=== PATIENT | female | born 1955 | race American Indian/Alaskan Native ===

== ENCOUNTER 2017-11-14 11:46 | Emergency (ER) | payer MEDICARE ==
[2017-11-14] MEDS ORDERED: TORADOL IV ONE (16:28)
[2017-11-14] MEDS ORDERED: BENADRYL IV ONE (16:28)
[2017-11-14] MEDS ORDERED: NACL 0.9% 1000 ML 1,000 ML IV ONE (16:28)
--- NOTE | 2017-11-14 16:29 | Emergency Department Report ---
ED General Adult HPI - General Chief complaint: Upper Respiratory Infection Stated complaint: FLU LIKE SYMPTOMS Time Seen by Provider: 11/14/17 16:07 Source: patient, RN notes reviewed Mode of arrival: Ambulatory Limitations: No Limitations - History of Present Illness Initial comments: This is a 62-year-old female who was previously on known to this provider. Patient presents to the ER with sinus pressure in her frontal sinus, left sided maxillary sinus pressure, cough and congestion. She describes a headache that started yesterday, headache was not sudden or thunderclap in nature, it did not reach maximal intensity within an hour, and it is not the worse headache of her life. She reports chronic and frequent sinus and migraine headaches. She also complains of cough, right scapular pain, and chest wall pain with coughing. This has been going on intermittently for the past 18 days. Patient further reports that she was treated for the flu at the [facility] , this was on October 27, she reports her symptoms improved, and then worsened. There is no leg pain or leg swelling, no recent cocaine use, patient denies DVT and pulmonary embolus risk factors. -: Gradual Location: head, face, chest, back Quality: aching Consistency: constant Improves with: rest Worsens with: movement Associated Symptoms: chest pain, cough, headaches, weakness. denies: confusion , diaphoresis, fever/chills, loss of appetite, malaise, nausea/vomiting, rash, seizure, syncope - Related Data Previous Rx's Medication Instructions Recorded Last Taken Type Acetaminophen [Tylenol Arthritis] 650 mg PO Q6HR PRN #30 tablet.er 11/14/17 Unknown Rx Albuterol Sulfate [Proair 90 mcg IH Q4HR PRN #2 aer.[email or web address] 11/14/17 Unknown Rx Respiclick] Benzonatate [Tessalon Perles] 100 mg PO Q8HR PRN #30 capsule 11/14/17 Unknown Rx Fluticasone [Flonase] 1 spray NS QDAY #1 bottle 11/14/17 Unknown Rx Allergies Allergy/AdvReac Type Severity Reaction Status Date / Time aspirin Allergy Itching Verified 11/14/17 17:07 latex Allergy Itching Verified 11/14/17 17:07 onion Allergy Itching Verified 11/14/17 17:07 ED Review of Systems ROS: Stated complaint: FLU LIKE SYMPTOMS Other details as noted in HPI ED Past Medical Hx - Past Medical History Previous Medical History?: Yes Hx Hypertension: Yes Hx Psychiatric Treatment: Yes (depression) Additional medical history: back and neck, refux bladder implant - Surgical History Past Surgical History?: Yes Additional Surgical History: bladder implant device - Social History Smoking Status: Former Smoker Substance Use Type: None - Medications Home Medications: Home Medications Medication Instructions Recorded Confirmed Last Taken Type Acetaminophen [Tylenol Arthritis] 650 mg PO Q6HR PRN #30 tablet.er 11/14/17 Unknown Rx Albuterol Sulfate [Proair 90 mcg IH Q4HR PRN #2 aer.[email or web address] 11/14/17 Unknown Rx Respiclick] Benzonatate [Tessalon Perles] 100 mg PO Q8HR PRN #30 capsule 11/14/17 Unknown Rx Fluticasone [Flonase] 1 spray NS QDAY #1 bottle 11/14/17 Unknown Rx ED Physical Exam - General Limitations: No Limitations General appearance: alert, in no apparent distress - Head Head exam: Present: atraumatic, normocephalic - Eye Eye exam: Present: normal appearance, PERRL, EOMI. Absent: nystagmus - ENT ENT exam: Present: normal exam, normal orophraynx, mucous membranes moist, TM's normal bilaterally, normal external ear exam, other (there is maxillary sinus tenderness, there is frontal sinus tenderness) - Neck Neck exam: Present: normal inspection, full ROM. Absent: tenderness, meningismus - Respiratory Respiratory exam: Present: normal lung sounds bilaterally, chest wall tenderness , other (bilateral breast exam is unremarkable, there is reproducible chest wall tenderness, during the breast examination, I am escorted by ER science specialist Renetta Branham). Absent: respiratory distress, wheezes, rales, rhonchi, stridor - Cardiovascular Cardiovascular Exam: Present: normal rhythm, tachycardia, normal heart sounds. Absent: systolic murmur, diastolic murmur, rubs, gallop - GI/Abdominal GI/Abdominal exam: Present: soft, normal bowel sounds. Absent: distended, tenderness, guarding, rebound, rigid, pulsatile mass - Extremities Exam Extremities exam: Present: normal inspection, full ROM, normal capillary refill. Absent: pedal edema, joint swelling, calf tenderness - Back Exam Back exam: Present: normal inspection, full ROM. Absent: tenderness, CVA tenderness (R), paraspinal tenderness, vertebral tenderness - Neurological Exam Neurological exam: Present: alert, oriented X3, CN II-XII intact, normal gait, other (Extraocular movements intact. Tongue midline. No facial droop. Facial sensation intact to light touch in the V1, V2, V3 distribution bilaterally. 5 and 5 strength in 4 extremities.. Sensation is intact to light touch in 4 extremities.). Absent: motor sensory deficit - Psychiatric Psychiatric exam: Present: anxious - Skin Skin exam: Present: warm, dry, intact, normal color. Absent: rash ED Course Vital Signs 11/14/17 12:21 Temperature 98.7 F Pulse Rate 109 H Respiratory 16 Rate Blood Pressure 125/100 O2 Sat by Pulse 98 Oximetry ED Medical Decision Making - Lab Data Result diagrams: 11/14/17 16:43 11/14/17 16:35 Vital Signs 11/14/17 12:21 Temperature 98.7 F Pulse Rate 109 H Respiratory 16 Rate Blood Pressure 125/100 O2 Sat by Pulse 98 Oximetry Lab Results 11/14/17 11/14/17 Range/Units 16:35 16:43 WBC 7.2 (4.5-11.0) K/mm3 RBC 4.98 (3.65-5.03) M/mm3 Hgb 12.7 (10.1-14.3) gm/dl Hct 40.0 (30.3-42.9) % MCV 80 (79-97) fl MCH 26 L (28-32) pg MCHC 32 (30-34) % RDW 14.8 (13.2-15.2) % Plt Count 346 (140-440) K/mm3 Sodium 137 (137-145) mmol/L Potassium 4.1 (3.6-5.0) mmol/L Chloride 96.5 L (98-107) mmol/L Carbon Dioxide 25 (22-30) mmol/L Anion Gap 20 mmol/L BUN 10 (7-17) mg/dL Creatinine 1.0 (0.7-1.2) mg/dL Estimated GFR > 60 ml/min BUN/Creatinine Ratio 10 % Glucose 130 H (65-100) mg/dL Calcium 8.9 (8.4-10.2) mg/dL Total Creatine Kinase 110 (30-135) units/L Troponin T < 0.010 (0.00-0.029) ng/mL - EKG Data When compared to previous EKG there are: previous EKG unavailable 11/14/17 17:27 Sinus tachycardia, 105 beats minute, normal axis, normal intervals, not morphologically consistent with ST elevation myocardial infarction, premature atrial complexes noted - Radiology Data Radiology results: report reviewed, image reviewed interpreted by me: X-ray the chest, interpreted by me: No acute disease - Medical Decision Making Differential diagnosis, including but not limited to: Viral syndrome, bronchitis , sinusitis, costochondritis, pneumonia Assessment and plan: 62-year-old female with headache, sinus tenderness, cough, chest wall tenderness, most likely bronchitis. She is afebrile with reassuring vital signs, tachycardia is improved. Low risk by JULIO score, low risk by heart score, no pulmonary embolus or DVT risk factors , troponin negative 1, as per the [employer] clinical policy, myocardial infarction may be excluded with 1 set of cardiac enzymes if symptoms have present for greater than 8 hours, her symptoms have present intermittently for weeks. She felt improved after appropriate symptomatic and supportive care, x-ray of the chest was negative, laboratory studies were unremarkable. Critical care attestation.: If time is entered above; I have spent that time in minutes in the direct care of this critically ill patient, excluding procedure time. ED Disposition Clinical Impression: Sinusitis Disposition: DC-01 TO HOME OR SELFCARE Is pt being admited?: No Does the pt Need Aspirin: No Condition: Stable Instructions: Chronic Bronchitis (ED) Additional Instructions: As we discussed, symptoms likely coming from cold/viral syndrome/bronchitis. Symptoms will likely persist for at least another 3-6 weeks. Take medications as directed. Follow up with a primary care doctor within the next month. Return to the ER right away with fevers, chills, lethargy, irritability, projectile vomiting, change in mental status, confusion, inability to tolerate liquid feeds. Take the prescription medications as needed/directed. Referrals: PRIMARY CARE, [Primary Care Provider] - 3-5 Days TASIA BROOKS MD [Staff Physician] - 3-5 Days
[2017-11-14 16:49] LABS: Hemoglobin 12.7 gm/dl (10.1-14.3); Mean Corpuscular HGB Conc 32 % (30-34); Mean Corpuscular Volume 80 fl (79-97); Platelet Count 346 K/mm3 (140-440); Red Blood Count 4.98 M/mm3 (3.65-5.03); Red Cell Distribution Width 14.8 % (13.2-15.2)
[2017-11-14 16:56] LABS: Mean Corpuscular Hemoglobin 26 pg (28-32)
[2017-11-14 17:06] LABS: BUN/Creatinine Ratio 10; Blood Urea Nitrogen 10 mg/dL (7-17); Calcium 8.9 mg/dL (8.4-10.2); Hemolysis Index 1
[2017-11-14 17:29] VITALS: BP 120/56
--- NOTE | 2017-11-15 07:46 | XRay Report ---
FINAL REPORT PROCEDURE: Chest. TECHNIQUE: PA and lateral views. HISTORY: Chest wall pain. COMPARISON: No prior studies are available for comparison. FINDINGS: The heart and mediastinum appear normal. The lungs are clear and well expanded. There are no pleural effusions. The soft tissues and regional skeleton are unremarkable. IMPRESSION: No evidence of acute cardiopulmonary disease.
== END 2017-11-14 18:05 | disposition home or self-care (01) ==
LOC: ED 11:46
DX: J32.9 Chronic sinusitis, unspecified (principal); I10 Essential (primary) hypertension
CPT/HCPCS: 36415; 71046; 80048; 82550; 84484; 85027; 93005; 93010; 96361; 96374; 96375; 99284; J1200; J1885; J7030